=== PATIENT | female | born 1980 | race African-American/Black ===

== ENCOUNTER 2017-10-01 17:05 | Emergency (ER) | payer OTHER ==
--- NOTE | 2017-10-01 17:22 | PDOC ---
Rapid Medical Evaluation Time Seen by Provider: 10/01/17 17:22 Medical Evaluation: Allergies Allergy/AdvReac Type Severity Reaction Status Date / Time No Known Allergies Allergy Verified 06/19/14 17:33 10/01/17 17:22 Healthy 36 year old female with 2 days of cough productive of clear sputum, rhinorrhea. Now with chest "tightness." No SOB. V/s notable for HR 120. Nexplanon implant for control. No leg swelling/calf pain. No family history of VTE. -EKG -CXR -Labs including CBC, CMP, PT/INR, D-dimer -To Main ED for further evaluation
[2017-10-01 17:26] VITALS: BP 147/108; PULSE 120; TEMP 98.8; BMI 24.0
--- NOTE | 2017-10-01 21:17 | PDOC ---
History of Present Illness - General Chief Complaint: Respiratory Stated Complaint: COLD SYMPTOMS Time Seen by Provider: 10/01/17 17:22 - History of Present Illness Initial Comments: 36-year-old female healthy free of any significant medical history presents for evaluation of cough and sinus congestion for 3 weeks with subjective fever at home. She does have chest tightness with cough no radiation of symptoms her symptoms of been there for 3 weeks 10/01/17 21:13 Past History - Past Medical History Allergies/Adverse Reactions: Allergies Allergy/AdvReac Type Severity Reaction Status Date / Time No Known Allergies Allergy Verified 10/01/17 17:23 Home Medications: Ambulatory Orders Amoxicillin/Potassium Clav [Augmentin 875-125 Tablet] 1 each PO BID #10 tablet 10/01/17 Budesonide [Rhinocort Allergy] 1 spray NS ONCE #1 spray.pump 10/01/17 Guaifenesin Dm [Robitussin Dm -] 5 ml PO HS PRN #20 ml 10/01/17 COPD: No Other medical history: DENIES. - Reproductive History (#): 0 Para: 0 Ectopic : No Polycystic Ovaries: No Therapeutic (s) & number: Yes (2) Tubal Ligation: No Spontaneous : 2 - Immunization History Immunization Up to Date: Yes - Suicide/Smoking/Psychosocial Hx Smoking History: Never smoked Hx Alcohol Use: No Drug/Substance Use Hx: No Substance Use Type: None Review of Systems - Review of Systems Comments:: GENERAL/CONSTITUTIONAL: [+ fever or chills. No weakness. No weight change.] HEAD, EYES, EARS, NOSE AND THROAT: [No change in vision. No ear pain or discharge. No sore throat.] CARDIOVASCULAR: [No chest pain or shortness of breath.] RESPIRATORY: [+ cough, no wheezing, or hemoptysis.] GASTROINTESTINAL: [No nausea, vomiting, diarrhea or constipation. No rectal bleeding.] GENITOURINARY: [No dysuria, frequency, or change in urination.] MUSCULOSKELETAL: [No joint or muscle swelling or pain. No neck or back pain.] SKIN AND BREASTS: [No rash or easy bruising.] NEUROLOGIC: [No headache, vertigo, loss of consciousness, or loss of sensation.] PSYCHIATRIC: [No depression or anxiety.] ENDOCRINE: [No increased thirst. No abnormal weight change.] HEMATOLOGIC/LYMPHATIC: [No anemia, easy bleeding, or history of blood clots.] ALLERGIC/IMMUNOLOGIC: [No hives or skin allergy. No latex allergy.] 10/01/17 21:14 *Physical Exam - Vital Signs Last Vital Signs Temp Pulse Resp BP Pulse Ox 98.8 F 120 H 20 147/108 97 10/01/17 17:23 10/01/17 17:23 10/01/17 17:23 10/01/17 17:23 10/01/17 17:23 - Physical Exam Comments: GENERAL: [The patient is awake, alert, and fully oriented, in no acute distress. ] HEAD: [Normal with no signs of trauma. There is tenderness over the frontal or maxillary sinuses.] EYES: [Pupils equal, round and reactive to light, extraocular movements intact, sclera anicteric, conjunctiva clear.] ENT: [Ears normal, nares injected, oropharynx clear without exudates. Moist mucous membranes.] NECK: [Normal range of motion, supple without lymphadenopathy, JVD, or masses.] LUNGS: [Breath sounds equal, clear to auscultation bilaterally. No wheezes, and no crackles.] HEART: [Regular rate and rhythm, normal S1 and S2 without murmur, rub or gallop. ] ABDOMEN: [Soft, nontender, normoactive bowel sounds. No guarding, no rebound. No masses.] EXTREMITIES: [Normal range of motion, no edema. No clubbing or cyanosis. No cords, erythema, or tenderness.] NEUROLOGICAL: [Cranial nerves II through XII grossly intact. Normal speech, normal gait.] PSYCH: [Normal mood, normal affect.] SKIN: [Warm, Dry, normal turgor, no rashes or lesions noted.] 10/01/17 21:14 Moderate Sedation - Procedure Monitoring Vital Signs: Vital Signs Temp Pulse Resp BP Pulse Ox 98.8 F 120 H 20 147/108 97 10/01/17 17:23 10/01/17 17:23 10/01/17 17:23 10/01/17 17:23 10/01/17 17:23 *DC/Admit/Observation/Transfer Diagnosis at time of Disposition: Sinusitis - Discharge Dispostion Disposition: HOME Condition at time of disposition: Stable Decision to Admit order: No - Prescriptions Prescriptions: Amoxicillin/Potassium Clav [Augmentin 875-125 Tablet] 1 each PO BID #10 tablet Budesonide [Rhinocort Allergy] 1 spray NS ONCE #1 spray.pump Guaifenesin Dm [Robitussin Dm -] 5 ml PO HS PRN #20 ml PRN Reason: Cough - Referrals Referrals: Jah Messer [Primary Care Provider] - - Patient Instructions Printed Discharge Instructions: Sinusitis, DI for Sinusitis Additional Instructions: Return to the emergency room if symptoms worsen or go unresolved prior to follow -up with her PCP. I prescribed few an antibiotic a nasal decongestant spray as well as cough syrup to help her sleep at night. I'll up with her primary care physician next 1-2 days for further evaluation and treatment options. - Post Discharge Activity
--- NOTE | 2017-10-02 16:19 | EKG ---
Test Reason : Blood Pressure : / mmHG Vent. Rate : 112 BPM Atrial Rate : 112 BPM P-R Int : 188 ms QRS Dur : 066 ms QT Int : 338 ms P-R-T Axes : 054 035 007 degrees QTc Int : 461 ms SINUS TACHYCARDIA POSSIBLE LEFT ATRIAL ENLARGEMENT SEPTAL INFARCT , AGE UNDETERMINED ABNORMAL ECG NO PREVIOUS ECGS AVAILABLE Confirmed by MD Jonny, Orlin ([id number]) on 10/02/2017 4:19:04 PM Referred By: Confirmed By:Olrin Fuller MD
== END 2017-10-01 21:20 | disposition home or self-care (01) ==
LOC: JERFT 17:05
DX: J01.80 Other acute sinusitis (principal)
CPT/HCPCS: 71046-TC-FY; 93005; 93010; 99281-25